=== PATIENT | female | born 1975 | race Hispanic/Latino ===

== ENCOUNTER 2019-12-07 15:43 | Emergency (ER) | payer BC, SELFPAY ==
--- NOTE | 2019-12-07 16:39 | RAD REPORT ---
EXAM DESCRIPTION: CT - Head Brain Wo Cont - 12/07/2019 4:33 pm CLINICAL HISTORY: HTN, headache COMPARISON: No comparisons TECHNIQUE: All CT scans are performed using dose optimization technique as appropriate and may inclu de automated exposure control or mA/KV adjustment according to patient size. FINDINGS: No intracranial hemorrhage, hydrocephalus or extra-axial fluid collection.No areas of brai n edema or evidence of midline shift. The paranasal sinuses and mastoids are clear. The calvarium is intact. IMPRESSION: No acute intracranial abnormality.
[2019-12-07 17:12] LABS: Absolute Lymphocytes (CBC) 1.6 K/uL (0.7-4.9); Basophils % 0.9 % (0-1.3); Hematocrit 32.3 % (36.0-45.0); Lymphocytes % 26.6 % (15.3-44.8); MPV 8.5 fL (7.6-11.3); RBC Red Blood Cell Count 4.69 M/uL (3.86-4.86)
[2019-12-07 17:35] LABS: BUN Blood Urea Nitrogen 15 mg/dL (7-18); Bicarbonate 29 mmol/L (21-32); Glucose Level 113 mg/dL (74-106); Potassium 3.4 mmol/L (3.5-5.1); Sodium Level 142 mmol/L (136-145); Troponin (Emerg Dept Use Only) < 0.02 ng/mL (0.0-0.045)
--- NOTE | 2019-12-07 17:46 | ER ---
Nurse's Notes [facility] Name: Calista Montaño Age: 44 yrs Sex: Female : 1975 Arrival Date: 12/07/2019 Time: 15:45 Bed 18 Private MD: Diagnosis: Hypertension Presentation: 12/07 15:51 Presenting complaint: Patient states: no history of HTN, feeling jittery and had a rb1 headache, stomachache. Transition of care: patient was not received from another setting of care. Onset of symptoms was December 05, 2019. Risk Assessment: Do you want to hurt yourself or someone else? Patient reports no desire to harm self or others. 15:51 Method Of Arrival: Ambulatory rb1 15:51 Acuity: JANELLE 3 rb1 16:00 Initial Sepsis Screen: Does the patient meet any 2 criteria? HR > 90 bpm. No. Patient's bp initial sepsis screen is negative. Does the patient have a suspected source of infection? No. Patient's initial sepsis screen is negative. Care prior to arrival: None. Triage Assessment: 15:54 General: Appears in no apparent distress. comfortable, Behavior is calm, cooperative. rb1 Neuro: Level of Consciousness is awake, alert, obeys commands, Oriented to person, place, time, situation. Respiratory: Airway is patent Respiratory effort is even, unlabored, Respiratory pattern is regular, symmetrical. Derm: Skin is pink, warm \T\ dry. RN OTOLARYNGOLOGY: 15:55 LMP 11/29/2019 rb1 Historical: - Allergies: 15:54 No Known Allergies; rb1 - Home Meds: 15:54 None [Active]; rb1 - PMHx: 15:54 None; rb1 - PSHx: 15:54 breast reduction; Lipo; Cholecystectomy; ; Left ankle; rb1 - Immunization history:: Adult Immunizations up to date. - Coronavirus screen:: The patient has NOT traveled to [place], [place], or [place] in the past 14 days. The patient has NOT had contact with known/suspected case of Coronavirus?. - Social history:: Smoking status: Patient/guardian denies using. - Family history:: not pertinent. - Ebola Screening: : Patient negative for fever greater than or equal to 101.5 degrees Fahrenheit, and additional compatible Ebola Virus Disease symptoms. - Hospitalizations: : No recent hospitalization is reported. Screenin:00 Abuse screen: Denies threats or abuse. Denies injuries from another. Nutritional bp screening: No deficits noted. Tuberculosis screening: No symptoms or risk factors identified. Fall Risk None identified. Assessment: 15:55 General: SEE TRIAGE NOTE. Pain: Denies pain. bp 17:00 Reassessment: PT NORMO-TENSIVE ON MONITOR. S/S RELIEVED, LAB RESULTS PENDING. bp 18:02 Reassessment: PT D/C HOME AMBULATORY WITH FAMILY, DX WITH HYPERTENSION. bp Vital Signs: 15:55 BP 184 / 104; Pulse 80; Resp 19; Temp 98.3(TE); Pulse Ox 96% on R/A; Weight 120.2 kg rb1 (R); Height 5 ft. 4 in. (162.56 cm) (R); Pain 0/10; 16:51 BP 161 / 98; Pulse 76; Resp 21; Temp 98.1(O); Pulse Ox 96% ; mh5 17:09 BP 154 / 75; Pulse 75; Resp 20; Pulse Ox 96% ; bp 18:00 BP 135 / 60; Pulse 76; Resp 18; Temp 98.5; Pulse Ox 96% ; bp 15:55 Body Mass Index 45.49 (120.20 kg, 162.56 cm) rb1 ED Course: 15:45 Patient arrived in ED. as 15:53 Triage completed. rb1 15:54 Arm band placed on left wrist. rb1 16:00 Patrick Atkinson, RN is Primary Nurse. bp 16:00 Cole Pruett MD is Attending Physician. rn 16:32 CT completed. Patient tolerated procedure well. Patient moved back from CT. mw3 16:34 CT Head Brain wo Cont In Process Unspecified. EDMS 16:52 Patient has correct armband on for positive identification. Placed in gown. Call light 5 in reach. Side rails up X 1. Warm blanket given. environmental monitoring specialist on. Pulse ox on. NIBP on. 17:02 Initial lab(s) drawn, by me, sent to lab. EKG done, by ED staff, reviewed by Cole Pruett MD. Inserted saline lock: 22 gauge in right antecubital area, using aseptic technique. Blood collected. 17:03 Troponin (emerg Dept Use Only) Sent. [facility] 17:03 Basic Metabolic Panel Sent. [facility] 17:03 CBC with Diff Sent. [facility] 18:03 No provider procedures requiring assistance completed. IV discontinued, intact, bp bleeding controlled, No redness/swelling at site. Pressure dressing applied. Administered Medications: No medications were administered Outcome: 17:44 Discharge ordered by . rn 18:03 Discharged to home ambulatory, with family. bp 18:03 Condition: stable 18:03 Discharge instructions given to patient, Instructed on discharge instructions, follow up and referral plans. Demonstrated understanding of instructions, follow-up care. 18:04 Patient left the ED. bp Signatures: Dispatcher [employer] Gloria Chapa Roman, MD MD rn Barber, Rebecca RN RN rb1 Arminda Faye [facility] Patrick Atkinson, RN RN bp Gabi Mcdonald 3
--- NOTE | 2019-12-07 17:47 | EDPHYS ---
Physician Documentation [facility] Name: Calista Montaño Age: 44 yrs Sex: Female : 1975 Arrival Date: 12/07/2019 Time: 15:45 Bed 18 Private MD: ED Physician Cole Pruett HPI: 12/07 17:09 This 44 yrs old Female presents to ER via Ambulatory with complaints of High rn Blood Pressure. 17:09 The patient has elevated blood pressure and discovered this at home. Onset: The rn symptoms/episode began/occurred at an unknown time. Modifying factors:. Associated signs and symptoms: Pertinent positives: headache, Pertinent negatives: chest pain, lightheadedness, visual changes, vomiting, weakness. Severity of symptoms: At its worst the blood pressure was moderate, in the emergency department the blood pressure is improved. The patient has not experienced similar symptoms in the past. Reports has been feeling like has a head cold, mother told her to check BP, was high, has strong fam hx of HTN, patient not on meds. No head trauma. NO focal neuro complaint. No chest pain. No abd pain.. 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 - Coronavirus screen:: The patient has NOT traveled to [place], [place], or [place] in the past 14 days. The patient has NOT had contact with known/suspected case of Coronavirus?. - Social history:: Smoking status: Patient/guardian denies using. - Family history:: not pertinent. - Ebola Screening: : Patient negative for fever greater than or equal to 101.5 degrees Fahrenheit, and additional compatible Ebola Virus Disease symptoms. - Hospitalizations: : No recent hospitalization is reported. ROS: 17:09 Constitutional: Negative for fever, chills, and weight loss, Eyes: Negative for injury, rn pain, redness, and discharge, Neck: Negative for injury, pain, and swelling, Cardiovascular: Negative for chest pain, palpitations, and edema, Respiratory: Negative for shortness of breath, cough, wheezing, and pleuritic chest pain, Abdomen/GI: Negative for abdominal pain, nausea, vomiting, diarrhea, and constipation, MS/Extremity: Negative for injury and deformity, Skin: Negative for injury, rash, and discoloration, Neuro: Negative for weakness, numbness, tingling, and seizure. Exam: 16:49 ECG was reviewed by the Attending Physician. rn 17:16 Constitutional: This is a well developed, well nourished patient who is awake, alert, rn and in no acute distress. Sitting upright and joking, smiling. Head/Face: Normocephalic, atraumatic. Eyes: Pupils equal round and reactive to light, extra-ocular motions intact. Lids and lashes normal. Conjunctiva and sclera are non-icteric and not injected. Cornea within normal limits. Periorbital areas with no swelling, redness, or edema. Cardiovascular: Regular rate and rhythm. No pulse deficits. Respiratory: No increased work of breathing, no retractions or nasal flaring. Abdomen/GI: soft, non-tender MS/ Extremity: Pulses equal, no cyanosis. Neurovascular intact. Full, normal range of motion. Equal circumference. Neuro: Awake and alert, GCS 15, oriented to person, place, time, and situation. Cranial nerves II-XII grossly intact. Motor strength 5/5 in all extremities. Sensory grossly intact. Cerebellar exam normal. Normal gait. Vital Signs: 15:55 BP 184 / 104; Pulse 80; Resp 19; Temp 98.3(TE); Pulse Ox 96% on R/A; Weight 120.2 kg rb1 (R); Height 5 ft. 4 in. (162.56 cm) (R); Pain 0/10; 16:51 BP 161 / 98; Pulse 76; Resp 21; Temp 98.1(O); Pulse Ox 96% ; mh5 17:09 BP 154 / 75; Pulse 75; Resp 20; Pulse Ox 96% ; bp 18:00 BP 135 / 60; Pulse 76; Resp 18; Temp 98.5; Pulse Ox 96% ; bp 15:55 Body Mass Index 45.49 (120.20 kg, 162.56 cm) rb1 MDM: 16:00 Patient medically screened. rn 17:43 Differential diagnosis: Malignant HTN, HTN. Data reviewed: vital signs, nurses notes, cloth pattern maker test result(s), radiologic studies, CT scan, and as a result, I will discharge patient. Counseling: I had a detailed discussion with the patient and/or guardian regarding: the historical points, exam findings, and any diagnostic results supporting the discharge/admit diagnosis, lab results, radiology results, the need for outpatient follow up, to return to the emergency department if symptoms worsen or persist or if there are any questions or concerns that arise at home. Response to treatment: the patient's symptoms have markedly improved after treatment, and as a result, I will discharge patient. Special discussion: I discussed with the patient/guardian in detail that at this point there is no indication for admission to the hospital. It is understood, however, that if the symptoms persist or worsen the patient needs to return immediately for re-evaluation. Based on the history and exam findings, there is no indication for further emergent testing or inpatient evaluation. I discussed with the patient/guardian the need to see the primary care provider for further evaluation of the symptoms. ED course: BP improved without therapy, ct head and bloodwork neg, ECG normal, will dc home with instructions to take BP journal and f/u with PCP.. 12/07 16:14 Order name: CBC with Diff rn 12/07 16:14 Order name: Basic Metabolic Panel; Complete Time: 17:43 rn 12/07 16:14 Order name: EKG; Complete Time: 16:15 rn 12/07 16:14 Order name: CT Head Brain wo Cont; Complete Time: 16:49 rn 12/07 16:14 Order name: Troponin (emerg Dept Use Only); Complete Time: 17:43 rn 12/07 17:21 Order name: CBC Smear Scan EDMS 12/07 16:14 Order name: IV Start; Complete Time: 17:03 rn 12/07 16:14 Order name: EKG - Nurse/Tech; Complete Time: 16:47 rn EC:49 Rate is 72 beats/min. Rhythm is regular. QRS [place] is Normal. CA interval is normal. QRS rn interval is normal. QT interval is normal. No Q waves. T waves are Normal. No ST changes noted. Clinical impression: Normal ECG. Interpreted by me. Reviewed by me. Administered Medications: No medications were administered Disposition: 12/07/19 17:44 Discharged to Home. Impression: Hypertension. - Condition is Stable. - Discharge Instructions: Hypertension. - Medication Reconciliation Form, Thank You Letter, Antibiotic Education, Prescription Opioid Use form. - Follow up: Private Physician; When: As needed; Reason: Recheck today's complaints, Re-evaluation by your physician. - Problem is new. - Symptoms have improved. Signatures: Dispatcher [employer] EDMS Cole Pruett MD MD rn Barber, Rebecca, RN RN rb1 Peltier, Brian, RN RN bp Corrections: (The following items were deleted from the chart) 18:04 17:44 12/07/2019 17:44 Discharged to Home. Impression: Hypertension. Condition is bp Stable. Forms are Medication Reconciliation Form, Thank You Letter, Antibiotic Education, Prescription Opioid Use. Follow up: Private Physician; When: As needed; Reason: Recheck today's complaints, Re-evaluation by your physician. Problem is new. Symptoms have improved. rn
[2019-12-07 18:02] LABS: Urine White Blood Cell Casts OK
[2019-12-07 18:03] LABS: Anisocytosis 1+; Blood Morphology Comment NOT SEEN (NOT SEEN); Platelet Estimate ADEQ; Poikilocytosis 1+
[2019-12-07 18:23] VITALS: O2SAT 96
[2019-12-07 18:28] VITALS: BP 135/60; TEMP 98.5
--- NOTE | 2019-12-08 09:21 | EKG ---
Test Date: 2019-12-07 Test Time: 16:45:15 Journalists And Other Writers: MARIAH MEASUREMENT RESULTS: Intervals: Rate: 72 DC: 148 QRSD: 92 QT: 414 QTc: 453 [place]: P: 21 DC: 148 QRS: 55 T: 56 INTERPRETIVE STATEMENTS: Normal sinus rhythm Normal ECG Compared to ECG 03/21/2017 21:47:29 Sinus arrhythmia no longer present Electronically Signed On 12-08-19 09:20:08 HEART COORDINATOR by Rogers Childs
== END 2019-12-07 18:04 | disposition home or self-care (01) ==
LOC: ER 15:43
DX: I10 Essential (primary) hypertension (principal)
CPT/HCPCS: 36415; 70450; 80048; 84484; 85025; 93005; 99285